=== PATIENT | male | born 1970 | race Caucasian/White ===

== ENCOUNTER → 2021-03-04 00:01 | Outpatient (BNVA) | payer OTHER, SELFPAY | PROVIDERS: Family Provider Family Medicine; PCP Family Medicine; Visit Provider Orthopaedic Surgery | DX: G56.01 Carpal tunnel syndrome, right upper limb (principal) | CPT/HCPCS: 87635 ==

== ENCOUNTER 2021-03-11 07:46 | Day surgery (SDC) | payer OTHER, SELFPAY ==
[2021-03-10 15:18] VITALS: BMI 37.3
[2021-03-11 08:06] VITALS: BP 135/85; PULSE 66; RESP 18; TEMP 36.8; O2SAT 95
--- NOTE | 2021-03-11 08:21 | W.PM.OPSUD ---
Surgery/Procedure H&P Update DATE OF PROCEDURE: March 11, 2021 DATE H&P PERFORMED: 03/02/21 H&P UPDATE INFORMATION: I have reviewed H&P completed within last 30 days PREOP DIAGNOSIS: Right carpal tunnel release PLANNED PROCEDURE: Operation Date: 03/11/21 09:10 Proposed Procedures p Carpal Tunnel Release [id number] G56.01(Right) - Nader Fountain MD
--- NOTE | 2021-03-11 08:25 | PM.OP ---
Operative Report Date of procedure: March 11, 2021 Pre-op Diagnosis: Right carpal tunnel release Post-op diagnosis: same Post-op Findings: Same Procedure Done: Right carpal tunnel release Pathology: none sent Anesthesia: Nerve Block ([place] block) Estimated blood loss (mL): 2 Tourniquet time (min): 22 Condition: stable Disposition: PACU Procedure: Patient was taken to the operating room and anesthesia provided by the anesthesia service. She was prepped and draped with the arm exposed. A timeout was performed. A 3 cm long incision was made in line with the fourth ray from the distal edge of the carpal tunnel extending proximally. The subcutaneous fat and palmar fascia was divided with a scalpel blade. Under loupe magnification the ulnar neurovascular bundle was identified distally. A hemostat could be passed under the transverse carpal ligament allowing the distal 25% to be divided. A slotted guide was then passed beneath the transverse carpal ligament and the middle 50% divided. Blunt scissors were then passed over the guide freeing the proximal ligament. The tourniquet was deflated. Hemostasis provided with electrocautery. Wound edges were infiltrated with 10 cc of a half percent Marcaine solution. Skin edges were reapproximated with 3-0 Prolene. Sterile dressings were applied. The patient was taken to the recovery room in stable condition
--- NOTE | 2021-03-11 09:02 | ANES.PREANE2 ---
Pre-Anesthetic Assessment Pre-Anesthetic Assessment: Height/Weight: Height 1.83 m Weight 124.738 kg Temp Pulse Resp BP Pulse Ox 98.2 F 66 18 135/85 95 03/11/21 08:06 03/11/21 08:06 03/11/21 08:06 03/11/21 08:06 03/11/21 08:06 Preop Diagnosis: Right carpal tunnel release Proposed Procedure: Operation Date: 03/11/21 09:10 Proposed Procedures p Carpal Tunnel Release [id number] G56.01(Right) - Nader Fountain MD Was Beta Whitney taken within 24 hours: N/A Was Clonidine taken within 24 hours: N/A Last intake: Intake Last Liquid Date 03/10/21 Last Liquid Time 18:00 Last Solid Date 03/10/21 Last Solid Time 18:00 Social: Social History: No alcohol and No tobacco Exam: Pre-Anes Outpt Exam: alert, oriented x 3, clear to auscultation bilaterally and regular rate & rhythm Airway: Submandibular: WNL Cervical ROM: WNL MP: 2 Dentition: Full CV/HEM: CV/HEM: HTN Metabolic: Metabolic: Morbid obesity Musc/skel: Musc/skel: OA/DJD Anesthetic Plan: ASA status: 3 Anesthesia: MAC and Regional (specify below) (Michela fernandez) Risk of > 500 ml blood loss (7ml/kg in children): No PFSH Anesthesia PFSH: Social History (Updated 03/02/21 @ 13:01 by Js Gonzalez LPN) Smoking and tobacco status: never smoked Alcohol intake: never Data Anesthesia Cardiac Studies: No Data to Display
[2021-03-11] MEDS: sodium chloride 0.9% 1,000 ML 30 ML IV (09:30)
[2021-03-11 10:35] VITALS: BP 112/60; PULSE 60; RESP 20; TEMP 36.1; O2SAT 93
--- NOTE | 2021-03-11 10:38 | SUR.PHASEI ---
patient into pacu awake but drowsy. on room air with sat at 93%. patient states no pain. fingers to right hand warm and pink, dressing in place and dry. pt able to wiggle fingers.
[2021-03-11 10:40] VITALS: BP 113/57; PULSE 90; RESP 18; TEMP 36.1; O2SAT 93
[2021-03-11 10:45] VITALS: BP 113/57
[2021-03-11 10:47] VITALS: BP 115/47; PULSE 62; RESP 16; TEMP 36.1; O2SAT 93
--- NOTE | 2021-03-11 10:49 | SUR.PHASEI ---
PT taken to ops at 1045 room 11. pt awake and alert, dressing to right arm in place and dry. he is able to wiggle fingers to right hand. his fingers are pink and warm. states no pain at this time. report given to luda hyman
[2021-03-11 10:58] VITALS: BP 131/70; PULSE 53; RESP 16; O2SAT 95
--- NOTE | 2021-03-11 13:09 | ANE.PACU2 ---
Inpatient post-anesthesia follow up: Airway intact: Yes Vital signs: Temperature 97 F Pulse Rate 53 Respiratory Rate 16 Blood Pressure 131/70 Pulse Oximetry 95 Oxygen Delivery Me thod Room Air Oxygen Flow Rate Fraction of Inspir ed Oxygen Hydration adequate: Yes Nausea and vomiting: No Pain level: 2 Mental status: Baseline
== END 2021-03-11 11:13 | disposition home or self-care (01) ==
PROVIDERS: PCP Family Medicine; Visit Provider Orthopaedic Surgery
PROC: (CPT 64721; principal; 2021-03-11 09:00)
DX: G56.01 Carpal tunnel syndrome, right upper limb (principal); I10 Essential (primary) hypertension; E66.01 Morbid (severe) obesity due to excess calories; Z68.37 Body mass index [BMI] 37.0-37.9, adult; M19.90 Unspecified osteoarthritis, unspecified site
CPT/HCPCS: 64721; J0690; J2250; J2704; J3010; J3490; J7030

== ENCOUNTER 2023-01-10 16:58 | Emergency (ER) | payer OTHER, SELFPAY ==
[2023-01-10 17:00] VITALS: BP 138/93; PULSE 94; RESP 16; TEMP 36.3; O2SAT 96; BMI 37.3
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
[2023-01-10] MEDS: sodium chloride 0.9% 1,000 ML 999 ML IV (17:16)
[2023-01-10] MEDS: tetanus-dipt-pertussis 0.5 mL SDV IM (17:17)
[2023-01-10] MEDS: morphine 4 mg/mL SDV 1 mL IVP (17:26)
[2023-01-10] MEDS: ondansetron 2 mg/ML SDV 2 mL 4 MG IVP (17:26)
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
[2023-01-10 18:04] VITALS: BP 168/85; RESP 18; O2SAT 96
== END 2023-01-10 18:07 | disposition home or self-care (01) ==
PROVIDERS: Emergency Provider Family Medicine; PCP Family Medicine
DX: T21.24XA Burn of second degree of lower back, initial encounter (principal); T22.20XA Burn of second degree of shoulder and upper limb, except wrist and hand, unspecified site, initial encounter; T28.2XXA Burn of other parts of alimentary tract, initial encounter; X00.4XXA Hit by object from burning building or structure in uncontrolled fire, initial encounter; Z23 Encounter for immunization
CPT/HCPCS: 90471; 90715; 96374; 96375; 99284; 99291; J2270; J2405; J7030

== ENCOUNTER → 2023-04-24 09:27 | Outpatient (BNVA) | payer OTHER, SELFPAY | PROVIDERS: PCP Family Medicine; Visit Provider Nurse Practitioner Family | DX: J02.9 Acute pharyngitis, unspecified (principal); R05.9 Cough, unspecified | CPT/HCPCS: 87400; 87880 ==

== ENCOUNTER → 2023-05-09 12:59 | Outpatient (BNVA) | payer OTHER, SELFPAY | PROVIDERS: PCP Family Medicine; Visit Provider Family Medicine | DX: R35.0 Frequency of micturition (principal); M79.673 Pain in unspecified foot; R68.2 Dry mouth, unspecified; Z00.00 Encounter for general adult medical examination without abnormal findings; Z13.6 Encounter for screening for cardiovascular disorders; E03.9 Hypothyroidism, unspecified | CPT/HCPCS: 80053; 80061; 82607; 83036; 84443; 85025 ==

== ENCOUNTER → 2023-10-04 10:40 | Outpatient (BNVA) | payer OTHER, SELFPAY | PROVIDERS: PCP Family Medicine; Visit Provider Nurse Practitioner Family | DX: J06.9 Acute upper respiratory infection, unspecified (principal) | CPT/HCPCS: 87426 ==